=== PATIENT | female | born 2000 | race Caucasian/White ===

== ENCOUNTER → 2021-10-06 | Outpatient (CLI) | payer BC ==
--- NOTE | 2021-10-15 12:36 | P.HOLTER ---
24 Hour Holter monitor note: Patient wore a Holter monitor for 24 hrs from 10/06/2021 until 10/07/2021. Findings: Patient's baseline heart rate was normal sinus rhythm. There were no signficant atrial fibrillation, atrial flutter, or ventricular tachycardia episodes. There were no significant pauses greater than 2 seconds. Patient's minimum heart rate was 46. Patient's maximum heart rate was 156. Patient's average heart rate was 89. There were a total of 1625 PACs which represented 1.2% PAC burden There were a total of 2 PVCs which represented less than 0.01% PVC burden There was a brief 5 beat run of SVT at 106 bpm which patient was asymptomatic for. Patient activated event of shortness breath with walking up stairs corresponded with sinus rhythm. Conclusions: 24-hour Holter monitor showing normal sinus rhythm, rare PACs and PVCs. One episode of 5 beat run of SVT at 106 bpm, asymptomatic. Patient activated event of shortness of breath corresponding with normal sinus rhythm.
== END | disposition home or self-care (01) ==
LOC: RADECHMAIN 12:20
PROVIDERS: ATTEND Family Medicine
DX: I47.1 Supraventricular tachycardia (principal); I49.1 Atrial premature depolarization
CPT/HCPCS: 93225; 93226

== ENCOUNTER → 2024-08-14 | Outpatient (CLI) | payer BC ==
[2024-08-14 14:57] LABS: T4, Free (Free Thyroxine) 1.08 ng/dL (0.80-1.80)
== END | disposition home or self-care (01) ==
LOC: LABWHC1 11:12
PROVIDERS: ATTEND Family Medicine
DX: E03.8 Other specified hypothyroidism (principal)
CPT/HCPCS: 36415; 84432; 84439; 84443; 84481; 86376